=== PATIENT | male | born 1985 | race Two or more races ===

== ENCOUNTER 2017-06-20 21:11 | Emergency (ER) | payer MEDICAID ==
[~2017-06-20] VITALS: Ht 180.3 cm; Wt 95.3 kg
[2017-06-20 21:15] VITALS: BP 121/67
--- NOTE | 2017-06-20 21:45 | NUR ---
IV removed. Catheter intact and site benign. Pressure and 4x4 applied to site. No bleeding noted. Pt ambulatory with a steady gait. VSS, NAD noted. refusing care.
--- NOTE | 2017-06-20 21:56 | NUR ---
Patient does not wish to proceed with medical care recommended by Dr. Dee. Patient given information related to possible complications, up to and including , which could occur as a result of leaving the hospital at this time. Patient verbalizes understanding of risks involved due to leaving against medical advice. Patient has signed AMA form.
== END 2017-06-20 22:00 | disposition left against medical advice (07) ==
LOC: ER 21:14
DX: R56.9 Unspecified convulsions (principal); Z53.20 Procedure and treatment not carried out because of patient's decision for unspecified reasons
CPT/HCPCS: 99283; A4606; Z7610

== ENCOUNTER 2017-09-30 17:40 | Emergency (ER) | payer MEDICAID, OTHER ==
[~2017-09-30] VITALS: Ht 180.3 cm; Wt 86.2 kg
--- NOTE | 2017-09-30 17:45 | NUR ---
AAOX3, [id number] FROM [facility] FOR S/P SEIZURE. BS-70 IN THE FIELD. S/P XANAX,HEROIN, METH USE 3 DAYS AGO. SEIZURE PRECAUTION IS IN PLACE. RR IS EVEN AND UNLABORED WITH NAD NOTED. SKIN IS WARM AND DRY. AWAITING MD FOR EVAL.
[2017-09-30 18:35] LABS: BASOPHILS # (AUTO) 0.3 /CMM (0.0-0.2); BASOPHILS % (AUTO) 2.8 % (0.0-2.0); EOSINOPHILS % (AUTO) 1.9 % (0.0-6.0); HEMATOCRIT 39 % (39-51); HEMOGLOBIN 13.6 g/dL (13.5-17.5); LYMPHOCYTES % (AUTO) 25.6 % (20.0-44.0); MEAN CORPUSCULAR HGB CONC 35 g/dl (31.0-36.0); MEAN CORPUSCULAR VOLUME 83 fL (80-96); MONOCYTES # (AUTO) 0.7 /CMM (0.1-1.30); MONOCYTES % (AUTO) 5.6 % (2.0-12.0); NEUTROPHILS # (AUTO) 7.5 /CMM (1.8-8.9); NEUTROPHILS % (AUTO) 64.1 % (43.0-81.0); PLATELET COUNT (AUTO) 388 /CMM (150-450); RED BLOOD CELL COUNT(AUTO) 4.72 MIL/uL (4.5-6.0); WHITE BLOOD COUNT (AUTO) 11.7 K/uL (4.3-11.0)
--- NOTE | 2017-09-30 18:38 | NUR ---
TRANSPORTED FOR CT HEAD
[2017-09-30 18:46] LABS: CALCIUM, SERUM 8.9 mg/dL (8.5-10.1); CREATININE 0.8 mg/dL (0.6-1.3); POTASSIUM 3.6 mmol/L (3.5-5.1)
--- NOTE | 2017-09-30 18:50 | NUR ---
PATIENT CAME BACK FROM CT HEAD.
--- NOTE | 2017-09-30 19:08 | NUR ---
REPORT REC'D FROM MELVIN DAVIS FOR [facility].
--- NOTE | 2017-09-30 19:49 | NUR ---
Patient discharged to police custody in stable condition. No s/s of distress noted at this time. Resp even and unlabored. Written and verbal after care instructions given. Patient verbalizes understanding of instruction. IV removed. Catheter intact and site benign. Pressure and 4x4 applied to site. No bleeding noted. Ambulatory with a steady gait accompanied by [facility].
[2017-09-30 19:50] VITALS: BP 126/78
== END 2017-09-30 19:52 ==
LOC: ER 17:41
DX: R56.9 Unspecified convulsions (principal); F15.10 Other stimulant abuse, uncomplicated
CPT/HCPCS: 36415; 70450-TC; 80048-TC; 85025-TC; 85730-TC; A4606; Z7610

== ENCOUNTER 2018-02-24 16:25 | Emergency (ER) | payer OTHER ==
[~2018-02-24] VITALS: Ht 180.3 cm; Wt 99.8 kg
[2018-02-24] MEDS ORDERED: IBUPROFEN 600 MG TABLET PO ONE ×2 (17:56→18:00)
[2018-02-24] MEDS ORDERED: LIDOCAINE 2% JEL UROJET 10 ML MM ONE ×2 (18:07→18:30)
[2018-02-24 18:48] LABS: BILIRUBIN,URINE SMALL (NEGATIVE); BLOOD, URINE Large Ery/uL (NEGATIVE); KETONES,URINE 40 (NEGATIVE); LEUKOCYTE ESTERASE ,URINE Negative (NEGATIVE); NITRITE, URINE Negative (NEGATIVE); PROTEIN,URINE Trace mg/dl (NEGATIVE); UGLUCOSE Negative (NEGATIVE)
[2018-02-24 19:00] LABS: APPEARANCE,URINE HAZY (CLEAR); BACTERIA,URINE Few /HPF (None Seen); RBC,URINE 21-50 /HPF (0-2); SQUAMOUS EPITHELIAL CELL,UR Few /HPF (None Seen)
--- NOTE | 2018-02-24 19:00 | NUR ---
PT BIBSHERRIF, STATES "UNABLE TO URINATE FOR 3 DAYS", COMPLAINING OF LEFT FLANK PAIN. PT AAOX4. RESPIRATIONS EVEN AND UNLABORED. SKIN WARM AND INTACT. NO ACUTE DISTRESS NOTED AT THIS TIME. VITAL SIGNS STABLE. [employer] AT BEDSIDE
[2018-02-24 19:01] LABS: COLOR,URINE DARK YELLOW (YELLOW)
--- NOTE | 2018-02-24 19:18 | NUR ---
[employer]ING[employer] ATTENDANT AT BEDSIDE FOR BLOOD DRAW
[2018-02-24 19:27] LABS: BASOPHILS # (AUTO) 0.3 /CMM (0.0-0.2); BASOPHILS % (AUTO) 2.5 % (0.0-2.0); EOSINOPHILS % (AUTO) 0.9 % (0.0-6.0); HEMATOCRIT 43 % (39-51); HEMOGLOBIN 14.2 g/dL (13.5-17.5); LYMPHOCYTES % (AUTO) 18.6 % (20.0-44.0); MEAN CORPUSCULAR HGB CONC 33 g/dl (31.0-36.0); MEAN CORPUSCULAR VOLUME 84 fL (80-96); MONOCYTES # (AUTO) 0.6 /CMM (0.1-1.30); MONOCYTES % (AUTO) 5.3 % (2.0-12.0); NEUTROPHILS # (AUTO) 7.9 /CMM (1.8-8.9); NEUTROPHILS % (AUTO) 72.7 % (43.0-81.0); PLATELET COUNT (AUTO) 318 /CMM (150-450); RDW COEFFICIENT OF VARIATION 12.3 (11.5-15.0); RED BLOOD CELL COUNT(AUTO) 5.09 MIL/uL (4.5-6.0); WHITE BLOOD COUNT (AUTO) 10.9 K/uL (4.3-11.0)
[2018-02-24 19:37] LABS: CALCIUM, SERUM 9.6 mg/dL (8.5-10.1); POTASSIUM 3.9 mmol/L (3.5-5.1)
[2018-02-24 19:42] LABS: ALBUMIN 4.3 g/dL (3.4-5.0); BILIRUBIN,DIRECT 0.1 mg/dL (0.0-0.2); BILIRUBIN,TOTAL 0.4 mg/dL (0.2-1.0)
[2018-02-24] MEDS ORDERED: ACETAMINOPHEN ES 500 MG TABLET ONE (19:58)
--- NOTE | 2018-02-24 19:58 | NUR ---
PER VERBAL ORDER FROM ER PA, ADMINISTERED TYLENOL 1000MG PO X1 NOW.
--- NOTE | 2018-02-24 20:05 | NUR ---
PT MEDICALLY CLEARED FOR BOOKING. DC PAPERWORK GIVEN TO OFFICER AT BEDSIDE.
[2018-02-24] MEDS ORDERED: ACETAMINOPHEN ES 500 MG TABLET PO ONE (20:30)
[2018-02-24 20:33] VITALS: BP 154/84
== END 2018-02-24 20:35 ==
LOC: ER 16:35
DX: Z02.89 Encounter for other administrative examinations (principal); N20.0 Calculus of kidney; K59.00 Constipation, unspecified; F19.10 Other psychoactive substance abuse, uncomplicated
CPT/HCPCS: 36415; 74176; 76856; 80048; 80076; 81001; 85025; 99285; A4606; J3490; Z7610; 81000-TC